=== PATIENT | male | born 1945 | race Caucasian/White ===

== ENCOUNTER 2016-12-01 15:46 | Emergency (ER) | payer OTHER ==
[~2016-12-01] VITALS: Ht 180.3 cm; Wt 70.5 kg
[2016-12-01 15:59] VITALS: BP 145/66; PULSE 57; RESP 18; O2SAT 98
--- NOTE | 2016-12-01 16:59 | ED.REPORT ---
HPI-Trauma Multiple Date of Service Dec 01, 2016 ED Provider: Jesus Ch MD Pt is a healthy 71 year old male presenting to the ED post fall off a ladder 4 steps up and twisting and landing on his right buttcok 1 week ago. He complains of right hip and right lower back pain radiating down his right leg. Denies LOC , bladder or bowel incontinence, loss of sensation in the LE, focal weakness, fever, chills. He did not show symptoms right after the injury, but pain was gradually onset as that day wore on. He has been using ice every 4 hours and Ibuprofen or Motrin for the past week. He denies hx of back injury or surgery. Pt arrives to the ED using crutches. Pain is exacerbated by movement and extension of the leg. Pt is not on blood thinners. Nursing Notes Stated Complaint: FALL FROM LADDER/ RIGHT HIP, LEG AND BACK PAIN Chief Complaint: Multiple Trauma/Fall Nursing Notes Reviewed: Yes Allergies: Coded Allergies: No Known Allergies (Unverified , 12/01/16) Scheduled Lidocaine (Lidoderm) 700 Mg Adh..patch 1 PATCH TP UD General Time Seen by Provider: 18:01 Chief Complaint Other (Back pain) Hx Obtained From: Patient Arrived By: Walk-in Onset Occurred: 1 week ago Symptom Duration: Since onset Progression Since Onset: Gradually worsening Caused by: Fall from height (about 4 feet) Location: : Back: Hip right: Leg right Quality: Painful Severity: Current: Severe Severity: Maximum: Severe Recent Healthcare: No recent doctor visit, No recent hospitalization Similar Sx Previous: No Past Medical History Past Medical History denies hx of back pain Past Surgical History heel surgery Smoking History Unknown if Ever Smoker Ambulatory Status Independent Review of Systems Constitutional: Denies: Chills, Fever Musculoskeletal: Reports: Back pain, Extremity pain, Joint pain Neurologic: Denies: Bladder dysfunction, Bowel dysfunction, Change LOC, Focal weakness, Numbness Complete sys rev & neg: except as marked. Physical Exam Initial Vital Signs Vital Signs (First) Date Time Temp Pulse Resp B/P Pulse Ox O2 Delivery O2 Flow Rate FiO2 12/01/16 15:59 36.8 57 18 145/66 98 Room Air Initial VS: Reviewed ENT: Mucous membranes moist, Conjunctiva normal, No scleral icterus Extremities: Vascular intact, Neuro intact, No swelling, No tenderness Skin: Warm, Dry, No cyanosis Psychiatric: Mood/affect normal, Behavior normal, Normal thought content General/Constitutional: Awake, Alert, No acute distress, Well appearing Head / Eyes: Atraumatic, Normocephalic, PERRL, EOMI Neck: Atraumatic, Supple, No meningismus, Full range of motion, No adenopathy Respiratory / Chest: Atraumatic, Breath sounds NL, Breath sounds = bilat, No respiratory distress, No rales, No rhonchi, No wheezing, No stridor, No chest tenderness, No chest wall deformity, No crepitus Cardiovascular: Heart rate NL, Regular rhythm, Heart sounds NL, No gallop, No murmurs, No rubs, Cap refill not delayed, Peripheral circulation NL Abdomen: Atraumatic, Soft, Non-tender Back: Atraumatic, No midline vertebral tend, No paraspinal tenderness, No CVA tenderness No midline, cervical, thoracic or lumbar tenderness. Tenderness in the right gluteal region. No bony deformity or swelling. Sensation intact in bilateral LE. Strength 5/5 bilateral LE. Reproducible pain with straight leg raise on the right. Neurologic: Oriented X3, Speech NL, No motor deficits, No sensory deficits, CN II - XII intact, Cerebellar NL, Memory NL Interpretation & Diagnostics CT LUMBAR SPINE WITH IV CONTRAST: IMPRESSION: No acute fractures. Age-appropriate degenerative changes. No significant central spinal canal or neural foraminal narrowing. Dictated by: Wilmer Ferraro M.D. on 12/01/2016 at 18:48 Re-Eval/Medical Decision Med Decision/Clinical Course Pt is a healthy 71 year old male presenting to the ED post fall off a ladder 4 steps up and twisting and landing on his right buttcok 1 week ago. He complains of right hip and right lower back pain radiating down his right leg. Denies LOC , bladder or bowel incontinence, loss of sensation in the LE, focal weakness, fever, chills. He did not show symptoms right after the injury, but pain was gradually onset as that day wore on. He has been using ice every 4 hours and Ibuprofen or Motrin for the past week. He denies hx of back injury or surgery. Pt arrives to the ED using crutches. Pain is exacerbated by movement and extension of the leg. Pt is not on blood thinners. Here in the emergency department the patient is afebrile with stable vital signs and examination as above. Examination of the lower extremities reveals no neurologic deficits. CT lumbar spine showed no acute fractures. Age-appropriate degenerative changes. No significant central spinal canal or neural foraminal narrowing. Here in the emergency department the patient is able to ambulate normally, has good reflexes and no midline cervical, thoracic or lumbar tenderness. He does have some tenderness about his buttock and his symptoms are somewhat sciatica- like in nature. There is no evidence of central cord impingement or cauda equina syndrome. There is no evidence of paraspinal or epidural abscess. Here in the emergency department his pain was treated with Toradol and ice packs. He is advised to take Tylenol and ibuprofen. He has been provided with a prescription for Lidoderm patches. He will follow up closely with his primary care physician. Prior to discharge follow-up and return precautions were reviewed in detail with the patient who verbalized understanding and agreement with the plan. The patient was discharged in stable condition. Re-Evaluation/Progress : Time of Eval: 18:09 Patient Status: Condition improved Re-Evaluation/Progress Note: Performed physical exam. Counseled Regarding: Diagnosis, Lab results, Need for follow-up, When/why to return to ED Discharge & Departure Impression: Primary Impression: Low back pain Chronicity: acute Back pain laterality: right Sciatica presence: unspecified whether sciatica present Qualified Code: M54.5 - Low back pain Additional Impressions: Fall from ladder Encounter type: initial encounter Qualified Code: W11.XXXA - Fall on and from ladder, initial encounter Sciatica Laterality: right Qualified Code: M54.31 - Sciatica, right side Disposition: Home Discharge Condition All VS Reviewed: Yes Condition: Improved Patient Instructions: Acute Low Back Pain (ED) Additional Instructions: Thank you for seeking care at the emergency room. Our primary goal today in the ED was to evaluate you for any life-threatening conditions. Your evaluation was reassuring. We do not see any sign of fracture on your CT scan. You should follow-up with your primary doctor in the next week. Take 600 mg Ibuprofen every 8 hours with food and water. Stop taking it if your stomach becomes upset. Do not take the Ibuprofen for more than a week. You can also take 650 mg Tylenol every 6 hours alternating with the Ibuprofen. Use ice and hot packs and stretch. Use Lidocaine patches 12 hours on and 12 hours off. If they are too expensive, use the other modalities of pain management instead. You should return to the ED immediately if you develop increased pain, fevers, vomiting, cough, shortness of breath, chest pain, lightheadedness, numbness, incontinence, weakness or any other concerning signs or symptoms. Thank you for letting us partake in your care today. [facility] Att[facility] Portions of this note were transcribed by Romi Andre. I, Dr. Ch personally performed the history, physical exam and medical decision-making; I reviewed and confirmed the accuracy of the information in the transcribed note. Signed by: Carlos Blackburn, 12/01/2016. copies to: [facility] Jesus Ch MD Dec 01, 2016 16:59 ROMI ANDRE Dec 01, 2016 18:06
--- NOTE | 2016-12-01 18:55 | DRSVH ---
PROCEDURE: CT LUMBAR SPINE WITHOUT CONTRAST ([id number]) INDICATIONS: back pain/trauma TECHNIQUE: Noncontrast 3 mm thick sections acquired from the T12 level to the sacrum. Sagittal and coronal refo rmats were constructed. For radiation dose reduction, the following was used: automated exposure co ntrol. COMPARISON: None. FINDINGS: Image quality: Excellent. Bones: There is normal bony alignment. No acute vertebral body compression fractures. No suspiciou s lytic or blastic bony lesions. Central spinal caliber is of normal overall caliber. No pars defec ts. T12-L1: Normal intervertebral body disc height. Central spinal canal and neural foramen are patent. M ild facet joint hypertrophy. L1-L2: Mild broad-based posterior disc bulge. Facet joint hypertrophy. The central spinal canal and n eural foramen are patent. L2-L3: Mild broad-based posterior disc bulge. Facet joint hypertrophy. The central spinal canal and n eural foramina are patent. L3-L4: Mild broad-based posterior disc bulge. Facet joint and ligamentum flavum hypertrophy. Minimal bilateral neuroforaminal narrowing. The central spinal canal is patent. L4-L5: Mild broad-based posterior disc bulge. Facet joint and ligamentum flavum hypertrophy. Mild francis ateral neural foraminal narrowing. The central spinal canal is patent. L5-S1: Mild broad-based posterior disc bulge. Facet joint and ligamentum flavum hypertrophy. Mild francis ateral neural foraminal narrowing. The central spinal canal is patent. Soft tissues: No retroperitoneal masses or hematomas. Visualized aorta is normal in caliber. IMPRESSION: No acute fractures. Age-appropriate degenerative changes. No significant central spinal canal or neural foraminal narrowing. Dictated by: Wilmer Ferraro M.D. on 12/01/2016 at 18:48 Approved by: Wilmer Ferraro M.D. on 12/01/2016 at 18:54
[2016-12-01 19:17] VITALS: BP 127/76; PULSE 52; RESP 18; O2SAT 98
[2016-12-01] MEDS ORDERED: LIDO700A10 TP (19:18)
[2016-12-01 19:44] VITALS: BP 130/73; PULSE 50; RESP 20; O2SAT 97
== END 2016-12-01 19:44 | disposition home or self-care (01) ==
LOC: SED 15:46
DX: M54.41 Lumbago with sciatica, right side (principal); M25.551 Pain in right hip; W11.XXXA Fall on and from ladder, initial encounter; Y93.89 Activity, other specified; Y92.89 Other specified places as the place of occurrence of the external cause; Y99.8 Other external cause status
CPT/HCPCS: 72131; 96372; 99284; J1885